=== PATIENT | female | born 1980 | race American Indian/Alaskan Native ===

== ENCOUNTER 2019-05-26 15:05 | Emergency (ER) | payer OTHER ==
[2019-05-26 17:27] LABS: Hematocrit 40.8 % (30.3-42.9); Hemoglobin 13.4 gm/dl (10.1-14.3); Mean Corpuscular HGB Conc 33 % (30-34); Mean Corpuscular Volume 81 fl (79-97); Platelet Count 191 K/mm3 (140-440); Red Blood Count 5.05 M/mm3 (3.65-5.03); Red Cell Distribution Width 14.3 % (13.2-15.2)
[2019-05-26 17:51] LABS: BUN/Creatinine Ratio 10; Blood Urea Nitrogen 6 mg/dL (7-17); Calcium 9.2 mg/dL (8.4-10.2); Hemolysis Index 49
[2019-05-26 18:12] LABS: Bilirubin,Urine NEG (Negative); Blood,Urine LG (Negative); Color,Urine Yellow (Yellow); Mucus,Urine FEW /HPF; Protein,Urine <15 mg/dL mg/dL (Negative); Urobilinogen,Urine < 2.0 mg/dL (<2.0)
[2019-05-26 18:16] LABS: RBC,Urine > 182.0 /HPF (0.0-6.0)
[2019-05-26] MEDS ORDERED: ONDANSETRON 4 MG ODT TAB PO ONE ×2 (19:55→20:42)
[2019-05-26] MEDS ORDERED: ACETAMINOPHEN 500 MG TAB PO ONE (19:55)
--- NOTE | 2019-05-26 19:58 | Ultrasound Report ---
ULTRASOUND OBSTETRIC INDICATION / CLINICAL INFORMATION: , abd pain, spotting. Clinical Gestational Age (GA): 13 weeks 2 days TECHNIQUE: Transabdominal. Transvaginal COMPARISON: None available. FINDINGS: GESTATIONAL SAC: There is an ill defined fluid collection within the endometrium. Presuming this is a gestational sac, this measures 2.94 with respect to the gestational sac diameter and would correspon d to a 7 week 6 day IUP if viable. No pole or yolk sac is present. The fluid appears very compl icated. This does not appear to represent a normal gestational sac. YOLK SAC: Not visualized EMBRYO/FETUS: Not visualized ADNEXA: Right ovary is unremarkable. There is a 2.5 cm cyst within the left ovary. FREE FLUID: None. ADDITIONAL FINDINGS: Small subchorionic hemorrhage is noted. IMPRESSION: 1. There is a hypoechoic mass within the uterus possibly representing a gestational sac or possibly b lighted ovum. The sac does not appear to be normal as it is poorly marginated and appears to obtain c omplex fluid. I am concerned this is not a viable . Recommend close radiographic follow-up w ith HSG levels. Signer Name: Ekta López MD Signed: 05/26/2019 7:54 PM Workstation Name: [id number]
--- NOTE | 2019-05-26 19:58 | Ultrasound Report ---
Please see combined report of the transabdominal and transvaginal OB ultrasound dictated on the trans abdominal order. Signer Name: Ekta López MD Signed: 05/26/2019 7:54 PM Workstation Name: [id number]
--- NOTE | 2019-05-26 20:41 | Emergency Department Report ---
ED Female HPI - General Chief complaint: Vaginal Bleeding Stated complaint: VAGINAL BLEEDING Source: patient Mode of arrival: Ambulatory Limitations: No Limitations - History of Present Illness Initial comments: Patient is a A0 39-year-old -[place] female who is approximately 12 weeks gestation who presents to the ED with complaint of acute onset persistent severe pelvic pain with heavy vaginal bleeding for the last 12 hours.. Patient states that the bleeding initially was mild but progressively got worse, stating that she has failed 3 pads in the last 8 hours. Patient states that the pain has worsened this patient in the last 4 hours. Patient denies nausea, vomiting, chest pain, shortness of breath, dysuria, urinary frequency and urgency, vaginal discharge, syncope, dizziness or lightheadedness. MD Complaint: vaginal bleeding, pelvic pain -: Sudden, hour(s) (12) Location: suprapubic, other (vaginal) Radiation: non-radiating Severity: severe Severity scale (0 -10): 9 Quality: cramping, sharp, aching Consistency: constant Improves with: none Worsens with: none Are you Now?: Yes (12 weeks gestation) Last Menstrual Period: 02/18/19 EDC: 11/25/19 Associated Symptoms: denies other symptoms, vaginal bleeding, abdominal pain, loss of appetite, hematuria. denies: vaginal discharge, nausea/vomiting, fever/chills, headaches, dysuria, rash, seizure, shortness of breath, syncope, weakness, other - Related Data Sexually active: Yes : 1 Para: 0 A: 0 Previous Rx's Medication Instructions Recorded Last Taken Type Acetaminophen [Acetaminophen TAB] 500 mg PO Q6HR PRN #30 tablet 05/26/19 Unknown Rx Acetaminophen/Codeine [Tylenol 1 - 2 tab PO Q6H PRN #15 tab 05/26/19 Unknown Rx /Codeine # 3 tab] Ondansetron [Zofran Odt] 4 mg PO Q6HR PRN #21 tab.rapdis 05/26/19 Unknown Rx Allergies Allergy/AdvReac Type Severity Reaction Status Date / Time No Known Allergies Allergy Verified 05/26/19 15:10 ED Review of Systems ROS: Stated complaint: VAGINAL BLEEDING Other details as noted in HPI Constitutional: denies: chills, fever Eyes: denies: eye pain, eye discharge, vision change ENT: denies: ear pain, throat pain Respiratory: denies: cough, shortness of breath, wheezing Cardiovascular: denies: chest pain, palpitations Endocrine: no symptoms reported Gastrointestinal: abdominal pain (suprapubic pain), nausea. denies: diarrhea Genitourinary: denies: urgency, dysuria, discharge Musculoskeletal: denies: back pain, joint swelling, arthralgia Skin: denies: rash, lesions Neurological: denies: headache, weakness, paresthesias Psychiatric: denies: anxiety, depression Hematological/Lymphatic: denies: easy bleeding, easy bruising ED Past Medical Hx - Past Medical History Previous Medical History?: No - Surgical History Past Surgical History?: No - Social History Smoking Status: Never Smoker Substance Use Type: None - Medications Home Medications: Home Medications Medication Instructions Recorded Confirmed Last Taken Type Acetaminophen [Acetaminophen TAB] 500 mg PO Q6HR PRN #30 tablet 05/26/19 Unkno wn Rx Acetaminophen/Codeine [Tylenol 1 - 2 tab PO Q6H PRN #15 tab 05/26/19 Unknown Rx /Codeine # 3 tab] Ondansetron [Zofran Odt] 4 mg PO Q6HR PRN #21 tab.rapdis 05/26/19 Unknown Rx ED Physical Exam - General Limitations: No Limitations General appearance: alert, in no apparent distress - Head Head exam: Present: atraumatic, normocephalic, normal inspection - Eye Eye exam: Present: normal appearance, PERRL, EOMI Pupils: Present: normal accommodation - ENT ENT exam: Present: normal exam, normal orophraynx, mucous membranes moist, TM's normal bilaterally, normal external ear exam - Neck Neck exam: Present: normal inspection, full ROM. Absent: tenderness, lymphadenopathy - Respiratory Respiratory exam: Present: normal lung sounds bilaterally. Absent: respiratory distress, wheezes, rales, rhonchi, chest wall tenderness, accessory muscle use, decreased breath sounds - Cardiovascular Cardiovascular Exam: Present: regular rate, normal rhythm, normal heart sounds. Absent: systolic murmur, diastolic murmur, rubs, gallop - GI/Abdominal GI/Abdominal exam: Present: soft, tenderness (Palpable severe diffuse lower abdominal tenderness), guarding, normal bowel sounds. Absent: rebound, hype ractive bowel sounds, hypoactive bowel sounds - Bi-manual exam: Present: other (pelvic exam deferred, patient declined because of severe pain) - Extremities Exam Extremities exam: Present: normal inspection, full ROM, normal capillary refill - Back Exam Back exam: Present: normal inspection, full ROM. Absent: tenderness, CVA tenderness (R), CVA tenderness (L), muscle spasm, paraspinal tenderness - Neurological Exam Neurological exam: Present: alert, oriented X3, CN II-XII intact, normal gait, reflexes normal - Psychiatric Psychiatric exam: Present: normal affect, normal mood - Skin Skin exam: Present: warm, dry, intact, normal color. Absent: rash ED Course Vital Signs 05/26/19 15:15 Temperature 97.7 F Pulse Rate 83 Respiratory 18 Rate Blood Pressure 142/92 O2 Sat by Pulse 100 Oximetry ED Medical Decision Making - Lab Data Result diagrams: 05/26/19 16:24 05/26/19 16:24 - Radiology Data Radiology results: report reviewed, image reviewed Findings [facility] [address] [place] [address] Ultrasound Report Signed Patient: JACKSON MCCLELLAN MR#: [id number] : 1980 Acct:[id number] Age/Sex: 39 / F ADM Date: 05/26/19 Loc: ED Attending Dr: Ordering Physician: ANDRE TIMMONS Date of Service: 05/26/19 Procedure(s): US OB <= 14 weeks fetus Accession Number(s): [id number] cc: ANDRE TIMMONS ULTRASOUND OBSTETRIC INDICATION / CLINICAL INFORMATION: , abd pain, spotting. Clinical Gestational Age (GA): 13 weeks 2 days TECHNIQUE: Transabdominal. Transvaginal COMPARISON: None available. FINDINGS: GESTATIONAL SAC: There is an ill defined fluid collection within the endometrium. Presuming this is a gestational sac, this measures 2.94 with respect to the gestational sac diameter and would correspond to a 7 week 6 day IUP if viable. No pole or yolk sac is present. The fluid appears very complicated. This does not appear to represent a normal gestational sac. YOLK SAC: Not visualized EMBRYO/FETUS: Not visualized ADNEXA: Right ovary is unremarkable. There is a 2.5 cm cyst within the left ovary. FREE FLUID: None. ADDITIONAL FINDINGS: Small subchorionic hemorrhage is noted. IMPRESSION: 1. There is a hypoechoic mass within the uterus possibly representing a gestational sac or possibly blighted ovum. The sac does not appear to be normal as it is poorly marginated and appears to obtain complex fluid. I am concerned this is not a viable . Recommend close radiographic follow-up with HSG levels. Signer Name: Ekta López MD Signed: 05/26/2019 7:54 PM Workstation Name: [id number] Transcribed By: JR Dictated By: Ekta López MD Electronically Authenticated By: Ekta López MD Signed Date/Time: 05/26/191953 DD/ 48 TD/TT: - Medical Decision Making This is a 39-year-old A0 female who is approximately 12 weeks gestation and who presented to the ED with complaint of acute onset persistent severe diffuse lower abdominal pain with heavy vaginal bleeding for the last 12 hours. In the ED, patient is alert and oriented 3 and is not in distress but appears to be in significant pain, crying and rolling in bed during the physical exam. Patient was treated for pain in the ED with Tylenol and antiemetic Zofran. Lab test results were reviewed and are nonactionable acceptable beta hCG Quant 1864, which is inconsistent with the patient's reported 12 weeks' gestation. Transvaginal ultrasound shows an ill defined fluid collection within the endometrium. Presuming this is a gestational sac, this measures 2.94 with respect to the gestational sac diameter and would correspond to a 7 week 6 day IUP if viable. No pole or yolk sac is present. The fluid appears very complicated. This does not appear to represent a normal gestational sac. The yolk sac was not visualized. On reevaluation, patient's pain is not controlled with medications previously administered for pain. Given the fact that the patient appears to be having a miscarriage and she is in progress, patient was treated for pain stronger narcotic pain medication. Patient was discharged home on pain medications and advised to maintain a complete pelvic rest with no physical strenuous activities or sexual activity. Patient was advised to either return to the ED or to her [facility]ERY CLERK physician's office within 48 hours for serial beta hCG Quant test studies repeat to ascertain viability of the . Patient was otherwise advised to return to the ED immediately if symptoms get worse. - Differential Diagnosis Threatened miscarriage; UTI; Subchorionic bleed; Ovarian cyst Critical care attestation.: If time is entered above; I have spent that time in minutes in the direct care of this critically ill patient, excluding procedure time. ED Disposition Clinical Impression: Threatened miscarriage, Abdominal pain during in second trimester Disposition: TO HOME OR SELFCARE Is pt being admited?: No Does the pt Need Aspirin: No Condition: Stable Instructions: Threatened Miscarriage (ED), Abdominal Pain in (ED) Additional Instructions: Maintain a complete pelvic rest, no strenuous physical activity or sexual intercourse. Return to the ED or to your [facility]ERY CL[facility] physician within 48 hours from today for serial beta hCG Quant studies repeat to ascertain the viability of the . Otherwise return to the ED immediately if symptoms get worse. Prescriptions: Acetaminophen [Acetaminophen TAB] 500 mg PO Q6HR PRN #30 tablet PRN Reason: Pain , Severe (7-10) Acetaminophen/Codeine [Tylenol /Codeine # 3 tab] 1 - 2 tab PO Q6H PRN #15 tab PRN Reason: Pain , Severe (7-10) Ondansetron [Zofran Odt] 4 mg PO Q6HR PRN #21 tab.rapdis PRN Reason: Nausea Referrals: PRIMARY CARE,MD [Primary Care Provider] - 3-5 Days Forms: Work/School Release Form(ED) Time of Disposition: 21:09 Print Language: GEORGIAN
[2019-05-26] MEDS ORDERED: HYDROmorphone 1 MG/1 ML INJ IM ONE (20:42)
[2019-05-26 21:37] VITALS: BP 126/81
== END 2019-05-26 21:37 | disposition home or self-care (01) ==
LOC: ED 15:05
DX: O20.0 Threatened abortion (principal); Z79.899 Other long term (current) drug therapy; Z3A.12 12 weeks gestation of pregnancy
CPT/HCPCS: 36415; 76801; 76817; 80048; 81001; 84702; 85027; 86900; 86901; 96372; 99284; J1170; Q0162